=== PATIENT | male | born 1930 | race Caucasian/White ===

== ENCOUNTER 2017-04-06 16:46 | Observation (INO) | payer MEDICARE, BC ==
[2017-04-06] MEDS ORDERED: Sodium Chloride 0.9% 10 ML Syringe FLUSH PRN (17:00)
--- NOTE | 2017-04-06 17:03 | EDM.PDOC ---
ED HPI GENERAL MEDICAL PROBLEM - General Chief Complaint: Neurological Problem Stated Complaint: SLURRED SPEECH Time Seen by Provider: 04/06/17 17:03 Source of Information: Reports: Patient History Limitations: Reports: No Limitations - History of Present Illness INITIAL COMMENTS - FREE TEXT/NARRATIVE: 86-year-old male is brought in by his daughter for evaluation treatment of slurred speech and difficult with word finding. Unclear exactly when his last known well time was. Believed to be . Daughter reports that she first talked to him today and she appreciated that his speech sounded more slurred than normal and is having difficulty with word finding. She last talked to him evening and did not appreciate any abnormalities. Patient reports that he has been feeling unwell since Friday. He denies any headaches, dizziness, lightheadedness, chest pain, shortness of breath, abdominal pain, numbness or any tingling. Patient is very hard of hearing. He is currently using an older set of hearing aids. [facility] [place] [facility] [place] and dropped off his hearing aids to some difficulty with them. Patient lives at home by himself. - Related Data Allergies Allergy/AdvReac Type Severity Reaction Status Date / Time No Known Allergies Allergy Verified 04/06/17 21:37 Home Meds: Home Meds Levothyroxine 150 mcg PO ACBREAKFAST 04/06/17 [History] Simvastatin [Zocor] 40 mg PO BEDTIME 04/06/17 [History] metFORMIN HCl [Metformin HCl] 250 mg PO BIDMEALS 04/06/17 [History] Aspirin 325 mg PO DAILY #30 tablet 04/07/17 [Rx] ED ROS GENERAL - Review of Systems Review Of Systems: See Below Constitutional: Reports: Malaise. Denies: Weakness Respiratory: Denies: Shortness of Breath Cardiovascular: Denies: Chest Pain GI/Abdominal: Denies: Abdominal Pain, Nausea, Vomiting Neurological: Reports: Trouble Speaking (trouble with word finding), Change in Speech (slurred speech; trouble with word finding). Denies: Headache, Numbness , Tingling ED EXAM, NEURO - Physical Exam Exam: See Below Exam Limited By: No Limitations General Appearance: Alert, WD/WN, No Apparent Distress Eye Exam: Bilateral Eye: Normal Inspection, PERRL Ears: Normal External Exam, Normal Canal, Hearing Grossly Normal, Normal TMs, Hearing Loss Nose: Normal Inspection Throat/Mouth: Normal Inspection, Normal Lips, Normal Voice, No Airway Compromise Respiratory/Chest: No Respiratory Distress, Lungs Clear, Normal Breath Sounds Cardiovascular: Normal Peripheral Pulses, Regular Rate, Rhythm, No Murmur GI/Abdominal: Soft, Non-Tender Neurological: Alert, Normal Mood/Affect, Normal Dorsiflexion, Normal Plantar Flexion, Other (psychiatric clinician 5/5 bilaterally, dorsiflexion and plantar =flexion 5/5 bilaterally; no facial droop; no pronator drift; NIHSS done by nursing staff score of 3- 1 pt for dull sensation to the face; 1pt for mild aphasia; 1pt for dysarthria). No: Babinski Psychiatric: Normal Affect, Normal Mood Skin Exam: Warm, Dry, Normal Color EKG INTERPRETATION EKG Date: 04/06/17 Time: 16:55 Rhythm: NSR Rate (Beats/Min): 83 [place]: Normal P-Wave: Present QRS: Normal ST-T: Normal QT: Normal EKG Interpretation Comments: NSR at 83 bpm. No acute changes. Reviewed by myself and Dr. Saldana. Course - Vital Signs Last Recorded V/S: Last Vital Signs Temp 36.9 C 04/07/17 08:00 Pulse 72 04/07/17 13:06 Resp 16 04/07/17 13:06 BP 127/86 04/07/17 13:06 Pulse Ox 95 04/07/17 13:06 - Orders/Labs/Meds Labs: Laboratory Tests 04/06/17 04/06/17 04/06/17 Range/Units 16:55 16:59 16:59 WBC 7.19 (4.23-9.07) K/mm3 RBC 4.42 L (4.63-6.08) M/mm3 Hgb 14.1 (13.7-17.5) gm/L Hct 40.5 (40.1-51.0) % MCV 91.6 (79.0-92.2) fl MCH 31.9 (25.7-32.2) pg MCHC 34.8 (32.2-35.5) g/dl RDW Std Deviation 38.4 (35.1-43.9) fL Plt Count 337 (163-337) K/mm3 MPV 9.2 L (9.4-12.3) fl Neut % (Auto) 48.9 (34.0-67.9) % Lymph % (Auto) 30.3 (21.8-53.1) % Emanuel % (Auto) 19.3 H (5.3-12.2) % Eos % (Auto) 1.1 (0.8-7.0) Baso % (Auto) 0.1 (0.1-1.2) % Neut # (Auto) 3.51 (1.78-5.38) K/mm3 Lymph # (Auto) 2.18 (1.32-3.57) K/mm3 Emanuel # (Auto) 1.39 H (0.30-0.82) K/mm3 Eos # (Auto) 0.08 (0.04-0.54) K/mm3 Baso # (Auto) 0.01 (0.01-0.08) K/mm3 Manual Slide Review Abnormal smear PT 10.0 (8.0-13.0) SECONDS INR 0.92 APTT 25 (22-36) SECONDS Sodium (136-145) mEq/L Potassium (3.5-5.1) mEq/L Chloride (98-107) mEq/L Carbon Dioxide (21-32) mEq/L Anion Gap (5-15) BUN (7-18) mg/dL Creatinine (0.7-1.3) mg/dL Est Cr Clr Drug Dosing mL/min Estimated GFR (MDRD) (>60) mL/min BUN/Creatinine Ratio (14-18) Glucose (83-115) mg/dL POC Glucose 106 (83-110) mg/dL Calcium (8.5-10.1) mg/dL Total Bilirubin (0.2-1.0) mg/dL AST (15-37) U/L ALT (16-63) U/L Alkaline Phosphatase (46-116) U/L Troponin I (0.00-0.056) ng/mL NT-Pro-B Natriuret Pep (0-450) pg/mL Total Protein (6.4-8.2) g/dl Albumin (3.4-5.0) g/dl Globulin gm/dL Albumin/Globulin Ratio (1-2) Urine Color (Yellow) Urine Appearance (Clear) Urine pH (5.0-8.0) Ur Specific [place] (1.005-1.030) Urine Protein (Negative) Urine Glucose (UA) (Negative) Urine Ketones (Negative) Urine Occult Blood (Negative) Urine Nitrite (Negative) Urine Bilirubin (Negative) Urine Urobilinogen (0.2-1.0) Ur Leukocyte Esterase (Negative) Urine RBC (0-5) /hpf Urine WBC (0-5) /hpf Ur Epithelial Cells (0-5) /hpf Urine Bacteria (FEW) /hpf Urine Mucus (FEW) /hpf 04/06/17 04/06/17 Range/Units 16:59 18:42 WBC (4.23-9.07) K/mm3 RBC (4.63-6.08) M/mm3 Hgb (13.7-17.5) gm/L Hct (40.1-51.0) % MCV (79.0-92.2) fl MCH (25.7-32.2) pg MCHC (32.2-35.5) g/dl RDW Std Deviation (35.1-43.9) fL Plt Count (163-337) K/mm3 MPV (9.4-12.3) fl Neut % (Auto) (34.0-67.9) % Lymph % (Auto) (21.8-53.1) % Emanuel % (Auto) (5.3-12.2) % Eos % (Auto) (0.8-7.0) Baso % (Auto) (0.1-1.2) % Neut # (Auto) (1.78-5.38) K/mm3 Lymph # (Auto) (1.32-3.57) K/mm3 Emanuel # (Auto) (0.30-0.82) K/mm3 Eos # (Auto) (0.04-0.54) K/mm3 Baso # (Auto) (0.01-0.08) K/mm3 Manual Slide Review PT (8.0-13.0) SECONDS INR APTT (22-36) SECONDS Sodium 135 L (136-145) mEq/L Potassium 4.0 (3.5-5.1) mEq/L Chloride 101 (98-107) mEq/L Carbon Dioxide 25 (21-32) mEq/L Anion Gap 13.0 (5-15) BUN 22 H (7-18) mg/dL Creatinine 1.0 (0.7-1.3) mg/dL Est Cr Clr Drug Dosing 48.74 mL/min Estimated GFR (MDRD) > 60 (>60) mL/min BUN/Creatinine Ratio 22.0 H (14-18) Glucose 106 (83-115) mg/dL POC Glucose (83-110) mg/dL Calcium 9.1 (8.5-10.1) mg/dL Total Bilirubin 0.3 (0.2-1.0) mg/dL AST 16 (15-37) U/L ALT 17 (16-63) U/L Alkaline Phosphatase 71 (46-116) U/L Troponin I < 0.017 (0.00-0.056) ng/mL NT-Pro-B Natriuret Pep 39 (0-450) pg/mL Total Protein 7.0 (6.4-8.2) g/dl Albumin 3.8 (3.4-5.0) g/dl Globulin 3.2 gm/dL Albumin/Globulin Ratio 1.2 (1-2) Urine Color Yellow (Yellow) Urine Appearance Slt cloudy H (Clear) Urine pH 7.0 (5.0-8.0) Ur Specific [place] 1.020 (1.005-1.030) Urine Protein 1+ H (Negative) Urine Glucose (UA) Negative (Negative) Urine Ketones Trace H (Negative) Urine Occult Blood Negative (Negative) Urine Nitrite Negative (Negative) Urine Bilirubin Negative (Negative) Urine Urobilinogen 0.2 (0.2-1.0) Ur Leukocyte Esterase Negative (Negative) Urine RBC 5-10 H (0-5) /hpf Urine WBC 0-5 (0-5) /hpf Ur Epithelial Cells 0-5 (0-5) /hpf Urine Bacteria Few (FEW) /hpf Urine Mucus Few (FEW) /hpf Meds: Medications Discontinued Medications Generic Name Dose Route Start Last Admin Trade Name Freq PRN Reason Stop Dose Admin Acetaminophen 650 mg 04/06/17 20:30 Tylenol PO Q4H PRN Pain (Mild 1-3)/fever Hydrocodone Bitart/Acetaminophen 1 tab 04/06/17 20:30 [place] 325-5 Mg PO Q4H PRN Pain (moderate 4-6) Hydrocodone Bitart/Acetaminophen 2 tab 04/06/17 20:30 [place] 325-5 Mg PO Q4H PRN Pain (moderate 4-6) Aspirin 81 mg 04/07/17 09:00 04/07/17 09:04 Aspirin PO 81 mg DAILY [facility] Administration Diphtheria/Tetanus/Acell Pertussis 0.5 ml 04/06/17 21:57 Adacel IM 04/06/17 21:58 .ONCE ONE Docusate Sodium 100 mg 04/06/17 20:30 Colace PO BID PRN Constipation Enoxaparin Sodium 40 mg 04/07/17 09:00 04/07/17 09:04 Lovenox SUBCUT 40 mg DAILY [facility] Administration Hydralazine HCl 10 mg 04/06/17 20:30 Apresoline IVPUSH Q6H PRN Hypertension Sodium Chloride 1,000 mls @ 100 mls/hr 04/06/17 17:15 04/07/17 01:57 Normal Saline IV 100 mls/hr ASDIRECTED [facility] Administration Influenza Virus Vaccine 1 each 04/06/17 21:57 04/06/17 22:42 Pharmacy To Dose - Influenza Vaccine IM 04/06/17 21:58 Not Given ONETIME ONE Influenza Virus Vaccine 180 mcg 04/07/17 09:00 Fluzone High-Dose 2017-18 IM 04/07/17 09:01 .ONCE ONE Levothyroxine Sodium 150 mcg 04/07/17 06:00 04/07/17 07:11 Levothyroxine PO 150 mcg ACBREAKFAST [facility] Administration Metformin HCl 500 mg 04/06/17 21:00 04/06/17 22:42 Glucophage PO Not Given BID [facility] Metformin HCl 250 mg 04/06/17 21:53 04/07/17 07:12 Glucophage PO 250 mg BIDMEALS [facility] Administration Morphine Sulfate 2 mg 04/06/17 20:30 Morphine IVPUSH 04/07/17 20:37 Q2H PRN Pain (severe 7-10) Non-Formulary Medication 80 mg 04/06/17 21:00 04/06/17 22:42 Simvastatin [Zocor] PO Not Given BEDTIME [facility] Ondansetron HCl 4 mg 04/06/17 20:30 Zofran Odt PO Q6H PRN nausea, able to take PO Ondansetron HCl 4 mg 04/06/17 20:30 Zofran IV Q6H PRN Nausea/Vomiting Patient's Own 0.5 each 04/06/17 21:46 Medication- PO Simvastatin 80mg Tab BEDTIME [facility] Patient's Own 0.5 each 04/06/17 22:30 04/06/17 22:41 Medication- PO 0.5 each Simvastatin 80mg Tab BEDTIME [facility] Administration Polyethylene Glycol 17 gm 04/06/17 20:30 Miralax PO DAILY PRN Constipation Sodium Chloride 10 ml 04/06/17 17:00 04/06/17 17:14 Saline Flush FLUSH 10 ml ASDIRECTED PRN Administration Keep Vein Open - Radiology Interpretation Free Text/Narrative:: CT of the head without contrast impression per vrad: No acute findings seen within the brain. Evidence of chronic ischemic changes as described. chest xray shows no acute intrathoracic process. CT Results Date: 04/06/17 - Re-Assessments/Exams Free Text/Narrative Re-Assessment/Exam: 04/06/17 19:47 Due to unclear last known well time, patient is not a candidate for thrombolytics. Informed patient and family of labs, ekg and imaging. Daughter reports speech is significantly improved since entering the ER. Patient likely had a TIA. Discussed with family sending patient to [place] for further testing and intervention if needed vs. staying in [place] for further testing. Patient and family elect to stay in [place] for further testing. Discussed the case with Dr. Crenshaw. Agrees to the admission. Departure - Departure Time of Disposition: 20:00 Disposition: Refer to Observation Condition: Fair Clinical Impression: TIA (transient ischemic attack) - Discharge Information
[2017-04-06] MEDS: Sodium Chloride 0.9% 1,000 ML IV SCH (17:14)
[2017-04-06] MEDS ORDERED: Ondansetron 4 MG Tab.DIS PO PRN (20:30)
[2017-04-06] MEDS ORDERED: Acetaminophen/HYDROcodone 325-5 MG Tab PO PRN ×2 (20:30)
[2017-04-06] MEDS ORDERED: hydrALAZINE 20 MG/ML SDV IVPUSH PRN (20:30)
[2017-04-06] MEDS ORDERED: Polyethylene Glycol 3350 Powder 17 GM Packet PO PRN (20:30)
[2017-04-06] MEDS ORDERED: Morphine 2 MG/ML Syringe IVPUSH PRN (20:30)
[2017-04-06] MEDS ORDERED: Docusate Sodium 100 MG Cap PO PRN (20:30)
[2017-04-06] MEDS ORDERED: Ondansetron 4 MG/2 ML SDV IV PRN (20:30)
[2017-04-06] MEDS ORDERED: Acetaminophen 325 MG Tab PO PRN (20:30)
[2017-04-06] MEDS ORDERED: metFORMIN 500 MG Tab PO SCH (21:00)
[2017-04-06] MEDS ORDERED: Non-Formulary Medication 1 Each (Simvastatin [Zocor] 80 MG) PO SCH (21:00)
--- NOTE | 2017-04-06 21:11 | PCM.HP ---
H&P History of Present Illness - General Date of Service: 04/06/17 Admit Problem/Dx: Admission Diagnosis/Problem Admission Diagnosis/Problem TIA, Transient ischemic attack Source of Information: Patient, Family (Daughter) History Limitations: Reports: Other (Slurred speech) - History of Present Illness Initial Comments - Free Text/Narative: Patient is an 86-year-old man who was brought in by his daughter for evaluation of complaints of slurred speech and difficult with word finding. The daughter states that the patient informed her that he noticed that he had problems with his speech on Friday and also reported difficulty right and and throwing the [employer]. Daughter states that she first spoke to him today and she realized that his speech sounded more slurred than normal and is having difficulty with word finding. Patient reports that he has been feeling unwell since Friday. He currently denies any headaches, dizziness, lightheadedness, blurry or double vision, chest pain, shortness of breath, abdominal pain, numbness or any tingling. He also denies any similar incident in the past. I had difficulty understanding what he was saying when he spoke to me during this interview. For these problems he was brought to the emergency room for further evaluation. At the emergency room, laboratory investigations did not reveal any obvious abnormalities. CT scan of the head without contrast revealed no acute finding within the brain. There was evidence of chronic ischemic changes. 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 He will be admitted for further evaluation and treatment. - Related Data Allergies/Adverse Reactions: Allergies Allergy/AdvReac Type Severity Reaction Status Date / Time No Known Allergies Allergy Verified 04/06/17 19:57 Home Medications: Home Meds Aspirin [Viola Chewable Aspirin] 81 mg PO DAILY 04/06/17 [History] Levothyroxine 150 mcg PO ACBREAKFAST 04/06/17 [History] Simvastatin [Zocor] 80 mg PO BEDTIME 04/06/17 [History] metFORMIN HCl [Metformin HCl] 500 mg PO BID 04/06/17 [History] Past Medical History HEENT History: Reports: Cataract Cardiovascular History: Reports: High Cholesterol, Hypertension Endocrine/Metabolic History: Reports: Other (See Below) Other Endocrine/Metabolic History: Borderline diabetic - Past Surgical History Male Surgical History: Reports: TURP-Transurethral Resection of Prostate Social & Family History - Family History Family Medical History: Noncontributory - Tobacco Use Smoking Status *Q: Never Smoker - Recreational Drug Use Recreational Drug Use: No H&P Review of Systems - Review of Systems: Review Of Systems: See Below General: Reports: No Symptoms HEENT: Reports: No Symptoms Pulmonary: Reports: No Symptoms Cardiovascular: Reports: No Symptoms Gastrointestinal: Reports: No Symptoms Genitourinary: Reports: No Symptoms Musculoskeletal: Reports: No Symptoms Skin: Reports: No Symptoms Psychiatric: Reports: No Symptoms Neurological: Reports: Change in Speech Hematologic/Lymphatic: Reports: No Symptoms Immunologic: Reports: No Symptoms Exam - Exam Exam: See Below - Vital Signs Vital Signs: Last Vital Signs Temp 98.4 F 04/06/17 16:56 Pulse 81 04/06/17 16:56 Resp 19 04/06/17 16:56 BP Pulse Ox 96 04/06/17 16:56 Weight: 77.111 kg - Exam General: Alert, Oriented, Cooperative HEENT: PERRLA, Hearing Intact, Mucosa Moist & [place], Nares Patent, Normal Nasal Septum, Posterior Pharynx Clear, Conjunctiva Clear, EOMI, EACs Clear, TMs Clear Neck: Supple, Trachea Midline, 2 Lungs: Clear to Auscultation, Normal Respiratory Effort Cardiovascular: Regular Rate, Regular Rhythm GI/Abdominal Exam: Normal Bowel Sounds, Soft, Non-Tender, No Organomegaly, No Distention, No Abnormal Bruit, No Mass, Pelvis Stable (Male) Exam: Deferred Rectal (Males) Exam: Deferred Back Exam: Normal Inspection, Full Range of Motion, NT Extremities: Normal Inspection, Normal Range of Motion, Non-Tender, No Pedal Edema, Normal Capillary Refill Peripheral Pulses: 2+: Carotid (L), Carotid (R), Brachial (L), Brachial (R), Radial (L), Radial (R), Femoral (L), Femoral (R), Popliteal (L), Popliteal (R), Posterior Tibial (L), Posterior Tibial (R), Dorsalis Pedis (L), Dorsalis Pedis ( R) Skin: Warm, Dry, Intact Neurological: Cranial Nerves Intact, Reflexes Equal Bilateral Neuro Extensive - Mental Status: Alert, Oriented x3, Normal Mood/Affect, Normal Cognition Neuro Extensive - Motor, Sensory, Reflexes: CN II-XII Intact, Normal Gait, Normal Reflexes DTR: 2+: Bicep (L), Bicep (R), Tricep (L), Tricep (R), Patella (L), Patella (R) , Achilles (L), Achilles (R) Psychiatric: Alert, Normal Affect, Normal Mood - Patient Data Result Diagrams: 04/06/17 16:59 04/06/17 16:59 EKG INTERPRETATION EKG Date: 04/06/17 Time: 16:55 Rhythm: NSR Rate (Beats/Min): 83 [place]: Normal P-Wave: Present QRS: Normal ST-T: Normal QT: Normal Comparison: NA - No Prior EKG *Q Meaningful Use (ADM) - VTE *Q VTE Criteria *Q: - Stroke *Q Stroke Criteria *Q: - AMI *Q AMI Criteria *Q: - Problem List (1) Transient ischemic attack SNOMED Code(s): 828256071 ICD Code: G45.9 - TRANSIENT CEREBRAL ISCHEMIC ATTACK, UNSPECIFIED Status: Suspected Priority: High Current Visit: Yes Qualifiers: Transient cerebral ischemia type: unspecified Qualified Code(s): G45.9 - Transient cerebral ischemic attack, unspecified (2) Cerebrovascular accident (CVA) SNOMED Code(s): 302977223 ICD Code: I63.9 - CEREBRAL INFARCTION, UNSPECIFIED Status: Suspected Priority: High Current Visit: Yes Qualifiers: CVA mechanism: unspecified Qualified Code(s): I63.9 - Cerebral infarction, unspecified (3) Diabetes mellitus type 2 in obese SNOMED Code(s): 85459930 ICD Code: E11.69 - TYPE 2 DIABETES MELLITUS WITH OTHER SPECIFIED COMPLICATION ; E66.9 - OBESITY, UNSPECIFIED Status: Chronic Priority: Low Current Visit : Yes (4) Hyperlipidemia SNOMED Code(s): 12135528 ICD Code: E78.5 - HYPERLIPIDEMIA, UNSPECIFIED Status: Chronic Priority: Low Current Visit: Yes Qualifiers: Hyperlipidemia type: unspecified Qualified Code(s): E78.5 - Hyperlipidemia , unspecified (5) Hypothyroidism (acquired) SNOMED Code(s): 891446117 ICD Code: E03.9 - HYPOTHYROIDISM, UNSPECIFIED Status: Chronic Priority: Low Current Visit: Yes Problem List Initiated/Reviewed/Updated: Yes Orders Last 24hrs: Active Orders 24 hr Category Date Time Status Patient Status [ADT] Routine ADT 04/06/17 20:31 Ordered Patient Status [ADT] Routine ADT 04/06/17 20:48 Active Antiembolic Devices [RC] PER UNIT ROUTINE Care 04/06/17 20:39 Ordered Blood Glucose Check, Bedside [RC] QIDACANDBED Care 04/06/17 20:30 Ordered Cardiac Monitoring [RC] . DIRECTED Care 04/06/17 20:48 Active Communication Order [RC] ASDIRECTED Care 04/06/17 20:31 Ordered EKG Documentation Completion [RC] ROUTINE Care 04/06/17 23:00 Ordered Head of Bed Elevation [RC] ASDIRECTED Care 04/06/17 20:31 Ordered Notify Provider Status Change [RC] ASDIRECTED Care 04/06/17 20:31 Ordered Notify Provider Vital Signs [RC] ASDIRECTED Care 04/06/17 20:45 Ordered Nursing Bedside Swallow Screen [RC] ASDIRECTED Care 04/06/17 20:43 Ordered Oxygen Therapy [RC] PRN Care 04/06/17 20:31 Ordered Up With Assistance [RC] ASDIRECTED Care 04/06/17 20:30 Ordered VTE/DVT Education [RC] PER UNIT ROUTINE Care 04/06/17 20:31 Ordered Vital Signs [RC] Q4H Care 04/06/17 20:31 Ordered OT Evaluation and Treatment [CONS] Routine Cons 04/06/17 20:30 Ordered PT Evaluation and Treatment [CONS] Routine Cons 04/06/17 20:30 Ordered CONSERVATION SCIENCE TEACHER Evaluation and Treatment [CONS] Routine Cons 04/06/17 20:30 Ordered Consistent Carbohydrate Diet [DIET] Diet 04/07/17 Breakfast Ordered Carotid Comp [US] Routine Exams 04/07/17 09:00 Ordered Echo Comp wo Cont [US] Routine Exams 04/07/17 08:00 Ordered BASIC METABOLIC PANEL,BMP [CHEM] AM Lab 04/07/17 05:11 Ordered CBC WITH AUTO DIFF [HEME] AM Lab 04/07/17 05:11 Ordered GLYCOSYLATED HEMOGLOBIN,HGBA1C [CHEM] AM Lab 04/07/17 05:11 Ordered LIPID PANEL [CHEM] AM Lab 04/07/17 05:11 Ordered SEDIMENTATION RATE AUTO [HEME] AM Lab 04/07/17 05:11 Ordered TROPONIN I [CHEM] Q6H Lab 04/06/17 23:00 Ordered TROPONIN I [CHEM] Q6H Lab 04/07/17 05:00 Ordered TSH [CHEM] AM Lab 04/07/17 05:11 Ordered Acetaminophen [Tylenol] Med 04/06/17 20:30 Ordered 650 mg PO Q4H PRN Acetaminophen/HYDROcodone [[place] 325-5 MG] Med 04/06/17 20:30 Ordered 1 tab PO Q4H PRN Acetaminophen/HYDROcodone [[place] 325-5 MG] Med 04/06/17 20:30 Ordered 2 tab PO Q4H PRN Aspirin Med 04/07/17 09:00 Ordered 81 mg PO DAILY Docusate Sodium [Colace] Med 04/06/17 20:30 Ordered 100 mg PO BID PRN Enoxaparin [Lovenox] Med 04/07/17 09:00 Ordered 40 mg SUBCUT DAILY Levothyroxine Med 04/07/17 06:00 Ordered 150 mcg PO ACBREAKFAST Morphine Med 04/06/17 20:30 Ordered 2 mg IVPUSH Q2H PRN Ondansetron [Zofran ODT] Med 04/06/17 20:30 Ordered 4 mg PO Q6H PRN Ondansetron [Zofran] Med 04/06/17 20:30 Ordered 4 mg IV Q6H PRN Polyethylene Glycol 3350 [MiraLAX] Med 04/06/17 20:30 Ordered 17 gm PO DAILY PRN Simvastatin [Zocor] Med 04/06/17 21:00 Ordered 80 mg PO BEDTIME hydrALAZINE [Apresoline] Med 04/06/17 20:30 Ordered 10 mg IVPUSH Q6H PRN metFORMIN [Glucophage] Med 04/06/17 21:00 Ordered 500 mg PO BID Antiembolic Hose [OM.PC] Per Unit Routine Oth 04/06/17 20:36 Ordered Resuscitation Status Routine Resus Stat 04/06/17 20:30 Ordered Medication Orders Acetaminophen (Tylenol) 650 mg PO Q4H PRN PRN Reason: Pain (Mild 1-3)/fever Hydrocodone Bitart/Acetaminophen ([place] 325-5 Mg) 1 tab PO Q4H PRN PRN Reason: Pain (moderate 4-6) Hydrocodone Bitart/Acetaminophen ([place] 325-5 Mg) 2 tab PO Q4H PRN PRN Reason: Pain (moderate 4-6) Aspirin (Aspirin) 81 mg PO DAILY [facility] Docusate Sodium (Colace) 100 mg PO BID PRN PRN Reason: Constipation Enoxaparin Sodium (Lovenox) 40 mg SUBCUT DAILY [facility] Hydralazine HCl (Apresoline) 10 mg IVPUSH Q6H PRN PRN Reason: Hypertension Sodium Chloride (Normal Saline) 1,000 mls @ 100 mls/hr IV ASDIRECTED [facility] Last Admin: 04/06/17 17:14 Dose: 100 mls/hr Levothyroxine Sodium (Levothyroxine) 150 mcg PO ACBREAKFAST [facility] Metformin HCl (Glucophage) 500 mg PO BID [facility] Morphine Sulfate (Morphine) 2 mg IVPUSH Q2H PRN PRN Reason: Pain (severe 7-10) Stop: 04/07/17 20:37 Non-Formulary Medication (Simvastatin [Zocor]) 80 mg PO BEDTIME [facility] Ondansetron HCl (Zofran Odt) 4 mg PO Q6H PRN PRN Reason: nausea, able to take PO Ondansetron HCl (Zofran) 4 mg IV Q6H PRN PRN Reason: Nausea/Vomiting Polyethylene Glycol (Miralax) 17 gm PO DAILY PRN PRN Reason: Constipation Sodium Chloride (Saline Flush) 10 ml FLUSH ASDIRECTED PRN PRN Reason: Keep Vein Open Last Admin: 04/06/17 17:14 Dose: 10 ml Assessment/Plan Comment:: Assessment: 1. Slurred speech possibly due to transient ischemic attack versus cerebrovascular accident. 2. Chronic Hyperlipidemia. 3. Chronic hypothyroidism. 4. History of diabetes mellitus type 2. Plan: 1. Admit to medicine service on the telemetry for further evaluation and treatment. Admit as observation status. 2. Complete echocardiogram in the morning. 3. Bilateral carotid duplex ultrasound in the morning. 4. Serial troponin and EKG every 6 hours 2, check TSH level, lipid panel, hemoglobin A1c, ESR. 5. Bedside swallow study by the nurse prior to oral intake. 6. Physical therapy, occupational therapy and speech therapy evaluation. 7. Fingerstick glucose monitoring pre-meal and bedtime. 8. Continue aspirin and statin. 9. DVT prophylaxis with Lovenox. 10. Discharge planning
[2017-04-06] MEDS ORDERED: SIMVASTATIN 80 MG PO SCH ×2 (21:46→22:30)
[2017-04-06] MEDS ORDERED: Diphtheria,Pertussis(Acell),Tetanus Vaccine 0.5 ML SDV IM ONE (21:57)
[2017-04-06] MEDS: metFORMIN 500 MG Tab **OWN MED PO SCH (22:20)
[2017-04-07] MEDS: Sodium Chloride 0.9% 1,000 ML IV SCH (01:57)
[2017-04-07] MEDS ORDERED: Levothyroxine 150 MCG Tab **OWN MED PO SCH (06:00)
[2017-04-07] MEDS: metFORMIN 500 MG Tab **OWN MED PO SCH (07:12)
[2017-04-07] MEDS ORDERED: Aspirin 81 MG Tab.Chew **OWN MED PO SCH (09:00)
[2017-04-07] MEDS ORDERED: Enoxaparin 40 MG/0.4 ML Syringe SUBCUT SCH (09:00)
[2017-04-07] MEDS ORDERED: FLU Vacc TS 2017-18 (65yr UP)/PF 180 MCG/0.5 ML Syringe IM ONE (09:00)
--- NOTE | 2017-04-07 10:24 | CT ---
Head CT Technique: Multiple axial sections through the brain were obtained. Intravenous contrast was not utilized. Comparison: No previous intracranial imaging. Findings: Ventricles along with basal cisterns and sulci over the convexities are mildly prominent. Diminished density is noted within portions of the periventricular and subcortical white matter compatible with small vessel ischemic demyelination change. Similar findings are seen within portions of the basal ganglia. No other abnormal parenchymal densities are appreciated. No evidence of intracranial hemorrhage. No midline shift or mass effect is seen. Bone window settings were reviewed which show no acute calvarial abnormality. Visualized sinuses are clear. Small opacity is seen within the soft tissues within the right frontal scalp most likely due to old foreign body. Impression: 1. Probable old foreign body within the soft tissues of the right frontal scalp. 2. Senescent change as described above. 3. No acute intracranial abnormality is identified. Diagnostic code #2 I agree with preliminary report issued by [facility] ([facility] preliminary report dictated on 04/06/17, 6:21 PM Central Time)
--- NOTE | 2017-04-07 10:24 | CR ---
Chest: Frontal view of the chest was obtained utilizing portable technique. Comparison: No prior chest x-ray. Heart size appears within normal limits. Mild tortuosity of the thoracic aorta is seen. Lungs are clear. Mild scoliosis is present within the spine. Impression: 1. Nothing acute is appreciated on portable chest x-ray. Diagnostic code #2
[2017-04-07 13:09] VITALS: BP 127/86
--- NOTE | 2017-04-07 14:05 | US ---
Carotid ultrasound: Duplex and color flow imaging was obtained of the carotid arteries. Comparison: No previous carotid imaging. Findings: Mild scattered plaque seen within the common carotid and internal carotid arteries. Plaque has mostly smooth margins. Velocity measurements Right side: CCA has a peak systolic velocity of 1.08 m/s. ICA has a peak systolic velocity of 0.63 m/s and peak end-diastolic velocity of 0.13 m/s. ECA has a peak systolic velocity of 1.45 m/s. Vertebral artery has a peak systolic velocity of 0.45 m/s. ICA/CCA ratio is 0.6. Left side: CCA has a peak systolic velocity of 1.19 m/s. ICA has a peak systolic velocity of 0.71 m/s and peak end-diastolic velocity of 0.18 m/s. ECA has a peak systolic velocity of 1.11 m/s. Vertebral artery has a peak systolic velocity of 0.39 m/s. ICA/CCA ratio is 0.6 Impression: 1. Mild scattered plaque on both sides. 2. Velocity measurements within both internal carotid arteries correspond to stenosis in the range of 1-49%. Diagnostic code #3
--- NOTE | 2017-04-07 15:30 | PCM.DCSUM1 ---
Discharge Summary - Hospital Course Free Text/Narrative:: 86-year-old man who was admitted for evaluation of complaints of slurred speech of 3 days' duration. Physical examination of this patient did not reveal any focal deficits except for the alteration in speech. He underwent a CT scan of the head without contrast which did not reveal any obvious acute abnormality. It did show that patient has metallic objects in the soft tissue of the head which would preclude an MRI. Carotid ultrasound of the neck did not reveal any obstruction but showed scattered plaques with velocity of 1-49%. He also underwent's complete echocardiogram and we are still awaiting the results. Physical therapy evaluation was done as well as speech therapy with recommendations in the chart. He will be discharged home to follow up with his primary care physician within one week of discharge. He has also been advised to follow up with a neurologist on discharge. HPI Initial Comments: Patient is an 86-year-old man who was brought in by his daughter for evaluation of complaints of slurred speech and difficult with word finding. The daughter states that the patient informed her that he noticed that he had problems with his speech on Friday and also reported difficulty right and and throwing the [place] ball [place]. Daughter states that she first spoke to him today and she realized that his speech sounded more slurred than normal and is having difficulty with word finding. Patient reports that he has been feeling unwell since Friday. He currently denies any headaches, dizziness, lightheadedness, blurry or double vision, chest pain, shortness of breath, abdominal pain, numbness or any tingling. He also denies any similar incident in the past. I had difficulty understanding what he was saying when he spoke to me during this interview. For these problems he was brought to the emergency room for further evaluation. At the emergency room, laboratory investigations did not reveal any obvious abnormalities. CT scan of the head without contrast revealed no acute finding within the brain. There was evidence of chronic ischemic changes. 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 He will be admitted for further evaluation and treatment. - Discharge Data Discharge Date: 04/07/17 Discharge Disposition: Home, Self-Care 01 Condition: Good - Discharge Diagnosis/Problem(s) (1) Transient ischemic attack SNOMED Code(s): 075306721 ICD Code: G45.9 - TRANSIENT CEREBRAL ISCHEMIC ATTACK, UNSPECIFIED Status: Suspected Priority: High Current Visit: Yes Qualifiers: Transient cerebral ischemia type: unspecified Qualified Code(s): G45.9 - Transient cerebral ischemic attack, unspecified (2) Cerebrovascular accident (CVA) SNOMED Code(s): 887874816 ICD Code: I63.9 - CEREBRAL INFARCTION, UNSPECIFIED Status: Suspected Priority: High Current Visit: Yes Qualifiers: CVA mechanism: unspecified Qualified Code(s): I63.9 - Cerebral infarction, unspecified (3) Diabetes mellitus type 2 in obese SNOMED Code(s): 42989764 ICD Code: E11.69 - TYPE 2 DIABETES MELLITUS WITH OTHER SPECIFIED COMPLICATION ; E66.9 - OBESITY, UNSPECIFIED Status: Chronic Priority: Low Current Visit : Yes (4) Hyperlipidemia SNOMED Code(s): 53427244 ICD Code: E78.5 - HYPERLIPIDEMIA, UNSPECIFIED Status: Chronic Priority: Low Current Visit: Yes Qualifiers: Hyperlipidemia type: unspecified Qualified Code(s): E78.5 - Hyperlipidemia , unspecified (5) Hypothyroidism (acquired) SNOMED Code(s): 010739204 ICD Code: E03.9 - HYPOTHYROIDISM, UNSPECIFIED Status: Chronic Priority: Low Current Visit: Yes - Patient Summary/Data Consults: Consultations 04/06/17 20:30 OT Evaluation and Treatment [CONS] Routine PT Evaluation and Treatment [CONS] Routine [employer]OYEE [employer]ICE [employer]ICER Evaluation and Treatment [CONS] Routine - Patient Instructions Diet: Heart Healthy Diet, Low Sodium, Drink 8-10+ Glasses/Day Activity: As Tolerated - Discharge Plan Prescriptions/Med Rec: Aspirin 325 mg PO DAILY #30 tablet Home Medications: Home Meds Levothyroxine 150 mcg PO ACBREAKFAST 04/06/17 [History] Simvastatin [Zocor] 40 mg PO BEDTIME 04/06/17 [History] metFORMIN HCl [Metformin HCl] 250 mg PO BIDMEALS 04/06/17 [History] Aspirin 325 mg PO DAILY #30 tablet 04/07/17 [Rx] Patient Handouts: Stroke Prevention, [id number], Transient Ischemic Attack, [id number] Referrals: Maynor Campa MD [Primary Care Provider] - 04/10/17 8:00 am (Please follow up with Dr. Campa on at 0800. ) - Discharge Summary/Plan Comment DC Time >30 min.: Yes - General Info Date of Service: 04/07/17 Admission Dx/Problem (Free Text: Admission Diagnosis/Problem Admission Diagnosis/Problem TIA, Transient ischemic attack Functional Status: Reports: Pain Controlled, Tolerating Diet, Ambulating, Urinating. Denies: New Symptoms - Review of Systems General: Reports: No Symptoms HEENT: Reports: No Symptoms Pulmonary: Reports: No Symptoms Cardiovascular: Reports: No Symptoms Gastrointestinal: Reports: No Symptoms Genitourinary: Reports: No Symptoms Musculoskeletal: Reports: No Symptoms Skin: Reports: No Symptoms Neurological: Reports: No Symptoms Psychiatric: Reports: No Symptoms - Patient Data Vitals - Most Recent: Last Vital Signs Temp 98.5 F 04/07/17 08:00 Pulse 72 04/07/17 13:06 Resp 16 04/07/17 13:06 BP 127/86 04/07/17 13:06 Pulse Ox 95 04/07/17 13:06 Weight - Most Recent: 75.16 kg I&O - Last 24 hours: Intake & Output 04/07/17 04/07/17 04/07/17 06:59 14:59 22:59 Intake Total 1069 660 Output Total 1100 Balance -31 660 Lab Results - Last 24 hrs: Laboratory Results - last 24 hr 04/06/17 04/06/17 04/07/17 Range/Units 21:27 23:05 05:13 WBC (4.23-9.07) K/mm3 RBC (4.63-6.08) M/mm3 Hgb (13.7-17.5) gm/L Hct (40.1-51.0) % MCV (79.0-92.2) fl MCH (25.7-32.2) pg MCHC (32.2-35.5) g/dl RDW Std Deviation (35.1-43.9) fL Plt Count (163-337) K/mm3 MPV (9.4-12.3) fl Neut % (Auto) (34.0-67.9) % Lymph % (Auto) (21.8-53.1) % [place] % (Auto) (5.3-12.2) % Eos % (Auto) (0.8-7.0) Baso % (Auto) (0.1-1.2) % Neut # (Auto) (1.78-5.38) K/mm3 Lymph # (Auto) (1.32-3.57) K/mm3 [place] # (Auto) (0.30-0.82) K/mm3 Eos # (Auto) (0.04-0.54) K/mm3 Baso # (Auto) (0.01-0.08) K/mm3 Manual Slide Review ESR (0-15) mm/hr Sodium (136-145) mEq/L Potassium (3.5-5.1) mEq/L Chloride (98-107) mEq/L Carbon Dioxide (21-32) mEq/L Anion Gap (5-15) BUN (7-18) mg/dL Creatinine (0.7-1.3) mg/dL Est Cr Clr Drug Dosing mL/min Estimated GFR (MDRD) (>60) mL/min BUN/Creatinine Ratio (14-18) Glucose (83-115) mg/dL POC Glucose 95 (83-110) mg/dL Hemoglobin A1c (4.50-6.20) % Calcium (8.5-10.1) mg/dL Troponin I < 0.017 < 0.017 (0.00-0.056) ng/mL Triglycerides (<150) mg/dL Cholesterol (<200) mg/dL LDL Cholesterol Direct (<100) mg/dL HDL Cholesterol (40-59) mg/dL TSH 3rd Generation (0.358-3.74) uIU/mL 04/07/17 04/07/17 04/07/17 Range/Units 05:13 05:13 05:13 WBC 6.72 (4.23-9.07) K/mm3 RBC 4.03 L (4.63-6.08) M/mm3 Hgb 12.7 L (13.7-17.5) gm/L Hct 37.0 L (40.1-51.0) % MCV 91.8 (79.0-92.2) fl MCH 31.5 (25.7-32.2) pg MCHC 34.3 (32.2-35.5) g/dl RDW Std Deviation 37.7 (35.1-43.9) fL Plt Count 328 (163-337) K/mm3 MPV 9.1 L (9.4-12.3) fl Neut % (Auto) 51.8 (34.0-67.9) % Lymph % (Auto) 28.7 (21.8-53.1) % [place] % (Auto) 17.0 H (5.3-12.2) % Eos % (Auto) 2.1 (0.8-7.0) Baso % (Auto) 0.3 (0.1-1.2) % Neut # (Auto) 3.48 (1.78-5.38) K/mm3 Lymph # (Auto) 1.93 (1.32-3.57) K/mm3 [place] # (Auto) 1.14 H (0.30-0.82) K/mm3 Eos # (Auto) 0.14 (0.04-0.54) K/mm3 Baso # (Auto) 0.02 (0.01-0.08) K/mm3 Manual Slide Review Normal smear ESR 7 (0-15) mm/hr Sodium 137 (136-145) mEq/L Potassium 4.1 (3.5-5.1) mEq/L Chloride 102 (98-107) mEq/L Carbon Dioxide 24 (21-32) mEq/L Anion Gap 15.1 H (5-15) BUN 18 (7-18) mg/dL Creatinine 0.9 (0.7-1.3) mg/dL Est Cr Clr Drug Dosing 54.15 mL/min Estimated GFR (MDRD) > 60 (>60) mL/min BUN/Creatinine Ratio 20.0 H (14-18) Glucose 95 (83-115) mg/dL POC Glucose (83-110) mg/dL Hemoglobin A1c (4.50-6.20) % Calcium 8.4 L (8.5-10.1) mg/dL Troponin I (0.00-0.056) ng/mL Triglycerides 84 (<150) mg/dL Cholesterol 132 (<200) mg/dL LDL Cholesterol Direct 68 (<100) mg/dL HDL Cholesterol 47.0 (40-59) mg/dL TSH 3rd Generation 3.702 (0.358-3.74) uIU/mL 04/07/17 04/07/17 04/07/17 Range/Units 05:13 06:40 13:04 WBC (4.23-9.07) K/mm3 RBC (4.63-6.08) M/mm3 Hgb (13.7-17.5) gm/L Hct (40.1-51.0) % MCV (79.0-92.2) fl MCH (25.7-32.2) pg MCHC (32.2-35.5) g/dl RDW Std Deviation (35.1-43.9) fL Plt Count (163-337) K/mm3 MPV (9.4-12.3) fl Neut % (Auto) (34.0-67.9) % Lymph % (Auto) (21.8-53.1) % [place] % (Auto) (5.3-12.2) % Eos % (Auto) (0.8-7.0) Baso % (Auto) (0.1-1.2) % Neut # (Auto) (1.78-5.38) K/mm3 Lymph # (Auto) (1.32-3.57) K/mm3 [place] # (Auto) (0.30-0.82) K/mm3 Eos # (Auto) (0.04-0.54) K/mm3 Baso # (Auto) (0.01-0.08) K/mm3 Manual Slide Review ESR (0-15) mm/hr Sodium (136-145) mEq/L Potassium (3.5-5.1) mEq/L Chloride (98-107) mEq/L Carbon Dioxide (21-32) mEq/L Anion Gap (5-15) BUN (7-18) mg/dL Creatinine (0.7-1.3) mg/dL Est Cr Clr Drug Dosing mL/min Estimated GFR (MDRD) (>60) mL/min BUN/Creatinine Ratio (14-18) Glucose (83-115) mg/dL POC Glucose 97 99 (83-110) mg/dL Hemoglobin A1c 5.90 (4.50-6.20) % Calcium (8.5-10.1) mg/dL Troponin I (0.00-0.056) ng/mL Triglycerides (<150) mg/dL Cholesterol (<200) mg/dL LDL Cholesterol Direct (<100) mg/dL HDL Cholesterol (40-59) mg/dL TSH 3rd Generation (0.358-3.74) uIU/mL Med Orders - Current: Current Medications Acetaminophen (Tylenol) 650 mg PO Q4H PRN PRN Reason: Pain (Mild 1-3)/fever Hydrocodone Bitart/Acetaminophen ([place] 325-5 Mg) 1 tab PO Q4H PRN PRN Reason: Pain (moderate 4-6) Hydrocodone Bitart/Acetaminophen ([place] 325-5 Mg) 2 tab PO Q4H PRN PRN Reason: Pain (moderate 4-6) Aspirin (Aspirin) 81 mg PO DAILY [facility] Last Admin: 04/07/17 09:04 Dose: 81 mg Docusate Sodium (Colace) 100 mg PO BID PRN PRN Reason: Constipation Enoxaparin Sodium (Lovenox) 40 mg SUBCUT DAILY [facility] Last Admin: 04/07/17 09:04 Dose: 40 mg Hydralazine HCl (Apresoline) 10 mg IVPUSH Q6H PRN PRN Reason: Hypertension Levothyroxine Sodium (Levothyroxine) 150 mcg PO ACBREAKFAST [facility] Last Admin: 04/07/17 07:11 Dose: 150 mcg Metformin HCl (Glucophage) 250 mg PO BIDMEALS [facility] Last Admin: 04/07/17 07:12 Dose: 250 mg Morphine Sulfate (Morphine) 2 mg IVPUSH Q2H PRN PRN Reason: Pain (severe 7-10) Stop: 04/07/17 20:37 Ondansetron HCl (Zofran Odt) 4 mg PO Q6H PRN PRN Reason: nausea, able to take PO Ondansetron HCl (Zofran) 4 mg IV Q6H PRN PRN Reason: Nausea/Vomiting Patient's Own Medication- Simvastatin 80mg Tab 0.5 each PO BEDTIME [facility] Last Admin: 04/06/17 22:41 Dose: 0.5 each Polyethylene Glycol (Miralax) 17 gm PO DAILY PRN PRN Reason: Constipation Sodium Chloride (Saline Flush) 10 ml FLUSH ASDIRECTED PRN PRN Reason: Keep Vein Open Last Admin: 04/06/17 17:14 Dose: 10 ml Discontinued Medications Diphtheria/Tetanus/Acell Pertussis (Adacel) 0.5 ml IM .ONCE ONE Stop: 04/06/17 21:58 Sodium Chloride (Normal Saline) 1,000 mls @ 100 mls/hr IV ASDIRECTED [facility] Last Admin: 04/07/17 01:57 Dose: 100 mls/hr Influenza Virus Vaccine (Pharmacy To Dose - Influenza Vaccine) 1 each IM ONETIME ONE Stop: 04/06/17 21:58 Last Admin: 04/06/17 22:42 Dose: Not Given Influenza Virus Vaccine (Fluzone High-Dose 2016-) 180 mcg IM .ONCE ONE Stop: 04/07/17 09:01 Metformin HCl (Glucophage) 500 mg PO BID [facility] Last Admin: 04/06/17 22:42 Dose: Not Given Non-Formulary Medication (Simvastatin [Zocor]) 80 mg PO BEDTIME [facility] Last Admin: 04/06/17 22:42 Dose: Not Given Patient's Own Medication- Simvastatin 80mg Tab 0.5 each PO BEDTIME [facility] - Exam General: Reports: Alert, Oriented, Cooperative HEENT: Reports: Pupils Equal, Pupils Reactive, EOMI, Mucous Membr. Moist/[place]ck: Reports: Supple Lungs: Reports: Clear to Auscultation, Normal Respiratory Effort Cardiovascular: Reports: Regular Rate, Regular Rhythm GI/Abdominal Exam: Normal Bowel Sounds, Soft, Non-Tender, No Organomegaly, No Distention, No Abnormal Bruit, No Mass, Pelvis Stable (Male) Exam: Deferred Rectal (Males) Exam: Deferred Back Exam: Reports: Normal Inspection, Full Range of Motion Extremities: Normal Inspection, Normal Range of Motion, Non-Tender, No Pedal Edema, Normal Capillary Refill Skin: Reports: Warm, Dry, Intact Neurological: Denies: Normal Speech Psy/Mental Status: Reports: Alert, Normal Affect, Normal Mood *Q Meaningful Use (DIS) - VTE *Q VTE Criteria *Q: - Stroke *Q Stroke Criteria *Q: - AMI *Q AMI Criteria *Q:
== END 2017-04-07 15:35 | disposition home or self-care (01) ==
LOC: JD.ED 16:46 → JD.MS 20:09
PROVIDERS: ADMIT Hospitalist; ATTEND Hospitalist
DX: R47.81 Slurred speech (principal); E11.69 Type 2 diabetes mellitus with other specified complication; E66.9 Obesity, unspecified; E78.5 Hyperlipidemia, unspecified; E03.9 Hypothyroidism, unspecified; Z79.82 Long term (current) use of aspirin; Z79.84 Long term (current) use of oral hypoglycemic drugs; Z79.899 Other long term (current) drug therapy; Z98.890 Other specified postprocedural states
CPT/HCPCS: 36415; 70450; 71010; 80048; 80053; 80061; 81001; 82962; 83036; 83880; 84443; 84484; 85025; 85610; 85652; 85730; 92522; 92523; 93005; 93306; 93880; 96360; 96361; 96372; 97161; 97165; 99285; A9270; G0378; J1650; J7040; J7050